=== PATIENT | male | born 2005 | race Caucasian/White ===

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

== ENCOUNTER 2024-01-19 14:10 | Emergency (ER) | payer BC, SELFPAY ==
[2024-01-19] MEDS ORDERED: Ibuprofen 600 MG TAB ONE (15:28)
[2024-01-19] MEDS ORDERED: Acetaminophen 500 MG TAB ONE (15:28)
== END 2024-01-19 15:30 | disposition home or self-care (01) ==
LOC: MADERS 14:10
DX: R50.9 Fever, unspecified (principal); R51.9 Headache, unspecified; R09.81 Nasal congestion
CPT/HCPCS: 87081; 87400; 87426; 87430; 99283